=== PATIENT | female | born 1985 | race Caucasian/White ===

== ENCOUNTER 2021-04-15 20:36 | Emergency (ER) | payer MEDICARE, MEDICAID, SELFPAY ==
[2021-04-15 21:30] VITALS: BP 139/103; PULSE 118; RESP 18; TEMP 36.8; O2SAT 99; BMI 35.3
[2021-04-15 23:17] VITALS: BP 140/92; PULSE 116; RESP 16; TEMP 36.8; O2SAT 99
[2021-04-15] MEDS: LORazepam 1 MG TABLET PO (23:31)
--- NOTE | 2021-04-15 23:34 | PC.NURSE ---
medicated per Mar.
--- NOTE | 2021-04-16 00:23 | ED_ITS ---
HPI - Skin/Abscess/Foreign Bdy General Chief complaint: Skin/Abscess/Foreign Body Stated complaint: Rash Time Seen by Provider: 04/15/21 23:25 Source: other (retirement staff member) Mode of arrival: ambulatory Limitations: no limitations History of Present Illness HPI narrative: 36-year-old female with developmental delay who was brought to the emergency department by halfway staff member for evaluation of a rash. The rash came on after dinner at around 7:20 p.m.. At the time my evaluation the rash is almost completely resolved however the halfway staff member did take photos of the rash. The patient has urticarial lesions on her face, neck and arms. The patient is nonverbal and is unreliable however the patient did not appear to have any significant distress with the rash. She had no difficult y swallowing. She did not appear to be short of breath. At the time my evaluation she is in no distress. Related Data Previous Rx's Medication Instructions Recorded diphenhydramine HCl 25 mg capsule 25 mg PO Q6H PRN #20 cap 04/16/21 (Benadryl) prednisone 20 mg tablet 60 mg PO DAILY 5 Days #15 tab 04/16/21 Allergies Allergy/AdvReac Type Severity Reaction Status Date / Time No Known Allergies Allergy Verified 04/15/21 21:29 [No Known Allergies*] Review of Systems Review of Systems: Yes all other systems are reviewed and are negative [facility] Past Medical History [facility] Narrative: Social history: The patient lives in a halfway. She does not smoke cigarettes, drink alcohol or use drugs. Medical History Angioma Anxiety Autism Cerebral palsy Intellectual disability Migraine Social History Social History Advance Directives: No Advance Directives Information Provided: No Physical Exam Vital Signs: Vital Signs: Last Vital Signs Temp 98.2 F 04/15/21 23:17 Pulse 116 H 04/15/21 23:17 Resp 16 04/15/21 23:17 BP 140/92 H 04/15/21 23:17 Pulse Ox 99 04/15/21 23:17 Body Mass Index 35.3 Const: Other: Nonverbal female, pleasant and cooperative, she does not appear to be in distress HENMT: Head: Yes normal to inspection, Yes normocephalic and Yes atraumatic Ears: external ears normal General nose exam: Normal external nose present Face and sinus: Yes normal facial exam Mouth: Normal oral and palatal mucosa present Throat: Yes posterior oropharynx normal Eyes: General: appearance normal, both eyes and all related structures Pupils: Equal, round and reactive pupils present Neck: Neck: Yes normal visual inspection, Yes no lymphadenopathy, Yes trachea midline and Yes supple Chest: Chest palpation & inspection: normal inspection of the chest and normal palpation of entire chest wall Resp: Effort & Inspection: normal respiratory effort and able to speak in complete sentences Auscultation: clear to auscultation bilaterally Cardio: Rate: regular rate Rhythm: regular rhythm Heart sounds: S1 normal heart sound present, S2 normal heart sound present and no murmurs GI: Inspection: Yes normal to inspection Palpation (GI): Soft to palpation, nontender and no guarding Auscultation: normal bowel sounds : General: Yes no CVA tenderness Back/Spine/Pelvis: Back: no CVA tenderness Skin: Other: The patient has faint urticarial appearing rash on her face and neck which blanches with pressure, there is no rash that I can see on her hands or arms. Neuro: Cranial nerves: Yes CN's II-XII intact bilaterally and Yes Equal, round and reactive pupils present Cognition (Neuro): normal cognition Motor exam (neuro): 5/5 motor strength present throughout Extrem: General: Yes normal to inspection Psych: Appearance: grossly normal Speech and movement: Normal speech and movement present Affect: normal affect Attitude: cooperative Thought process: Normal thought process present Thought content: Normal thought content present Course Course Course Narrative: 36-year-old female with developmental delay, nonverbal who was brought to the emergency department by her halfway for evaluation of an urticarial rash on her face and arms. The patient had no other significant symptoms. The patient's rash is consistent with an allergic reaction to an unknown allergen. The patient was given Benadryl 25 mg orally. She was also given prednisone 60 mg orally. She was prescribed Benadryl 25 mg every 6 hours as needed for allergic reaction/rash/itchiness. She was also prescribed prednisone 60 mg once a day for 5 days. Patient was discharged home in the care of her honey blender member. Discharge Plan Discharge Clinical Impression: Urticaria Allergic reaction Qualifiers: Encounter type: initial encounter Qualified Code(s): T78.40XA - Allergy, unspecified, initial encounter Patient Disposition: Home, Self-Care Instructions: Urticaria (ED), Allergies (ED) Additional Instructions: Your rash is consistent with an allergic reaction type rash (urticaria). It is symptoms very difficult to find the cause of an allergic reaction however if she develops a rash again, it is helpful to pay attention to what she ate, drank or was exposed to just prior to developing the rash. I am prescribing to medications for the allergic reaction rash. Give Benadryl 25 mg every 6 hours as needed for itchiness or rash. Give prednisone 20 mg pills, 3 pills once a day for 5 days. She should get her next dose on Monday morning, 04/17/2021. Follow-up with your doctor in 2 days. Please return to the emergency department if your symptoms get worse, develops difficulty swallowing, shortness of breath, lightheaded or dizziness or if you develop any symptoms that are concerning to you. Prescriptions: New prednisone 20 mg tablet 60 mg PO DAILY 5 Days Qty: 15 RF: 0 diphenhydramine HCl [Benadryl] 25 mg capsule 25 mg PO Q6H PRN (Reason: allergic reaction) Qty: 20 RF: 0
[2021-04-16] MEDS: predniSONE 20 MG TABLET 60 MG PO (00:45)
[2021-04-16] MEDS: diphenhydrAMINE HCL 25 MG TABLET PO (00:45)
[2021-04-16 00:48] VITALS: RESP 16
== END 2021-04-16 00:54 | disposition home or self-care (01) ==
PROVIDERS: Emergency Provider Emergency Medicine Emergency Medical Services
DX: L50.0 Allergic urticaria (principal); R62.50 Unspecified lack of expected normal physiological development in childhood
CPT/HCPCS: 96374; 99284; Q0163

== ENCOUNTER 2021-05-30 08:16 | Emergency (ER) | payer MEDICARE, MEDICAID, SELFPAY ==
[2021-05-30] VITALS (8 sets, daily range): BP systolic 93–140; BP diastolic 56–77; PULSE 87–125; RESP 12–20; TEMP 37.1–37.3; O2SAT 90–99; BMI 35.3
--- NOTE | 2021-05-30 08:44 | ECG_ITS ---
Test Reason : WRONG MED GIVEN Blood Pressure : / mmHG Vent. Rate : 120 BPM Atrial Rate : 120 BPM P-R Int : 132 ms QRS Dur : 074 ms QT Int : 322 ms P-R-T Axes : 026 027 002 degrees QTc Int : 455 ms Sinus tachycardia T wave abnormality, consider anterior ischemia Abnormal ECG When compared with ECG of 18-JUN-2014 10:11, Nonspecific T wave abnormality now evident in Lateral leads Referred By: Star Khan Electronically Signed By:ANDRES PARRA MD
[2021-05-30] MEDS: Haloperidol Lactate 5 MG/ML VIAL IM (09:35)
[2021-05-30] MEDS: diphenhydrAMINE HCL 50 MG/ML VIAL IM (09:35)
--- NOTE | 2021-05-30 09:40 | PC.NURSE ---
this scientific technical writer attempted to insert iv, pt became aggressive and started kicking and scratching ed staff and ripped monitor leads from her chest. DERICK Graves made aware by this scientific technical writer. IM meds ordered and given as documented. pt tolerated well. pt responds no to pain. vss documented. HR 106 - 114. waste water worker remains with pt will continue to monitor..
--- NOTE | 2021-05-30 09:51 | ED_ITS ---
HPI - General Adult General Chief complaint: General Medical Stated complaint: GIVEN WRONG MEDS FROM GROUP MEDS PER EMS Time Seen by Provider: 05/30/21 08:30 Source: patient Mode of arrival: ambulatory Limitations: no limitations History of Present Illness HPI narrative: 36-year-old female with past medical history of conference in skin, GERD, migraines, cerebral palsy, severe autistic disorder, intellectual disability, and anxiety brought to the ED for evaluation due to being given wrong meds. As per facility patient was given another pateint's medication by accident by shelter employee. Patient was given 1 pill of benzotine 1 mg, 1 pill of clonidine 0.1 mg, 1 pill of Depakote 50omg, 1 pill of fluxoteine 20 mg, 1 pill of Motrin 600 mg, 1 pill of pantoprazole 40 mg, 1 pill of Zyprexa 15 mg, 1 pill of Seroquel 50 mg. per shelter staff patient is at her baseline mentally. Patient was given the wrong meds of another patient at 08:00. Patient was not given her usual meds. Related Data Previous Rx's Medication Instructions Recorded diphenhydramine HCl 25 mg capsule 25 mg PO Q6H PRN #20 cap 04/16/21 (Benadryl) prednisone 20 mg tablet 60 mg PO DAILY 5 Days #15 tab 04/16/21 Allergies Allergy/AdvReac Type Severity Reaction Status Date / Time No Known Allergies Allergy Verified 05/30/21 08:22 [No Known Allergies*] Review of Systems 2 Review of Systems: Patient appears well appearing not in any distress. Yes Unobtainable due to mental status (autistic and severe intellect disability.) [facility] Past Medical History Medical History Angioma Anxiety Autism Cerebral palsy Intellectual disability Migraine Social History Social History Alcohol intake: never Patient Tobacco Use Status: Never used Tobacco Advance Directives: No Patient : No Physical Exam Vital Signs: Vital Signs: Last Vital Signs Temp 98.7 F 05/30/21 16:23 Pulse 87 05/30/21 16:23 Resp 18 05/30/21 16:23 BP 108/56 L 05/30/21 16:23 Pulse Ox 97 05/30/21 16:23 Body Mass Index 35.3 Const: General: cooperative, healthy appearing, comfortable, no acute distress, well developed, alert, awake and Physically active HENMT: Head: Yes normal to inspection, Yes No palpable skull fracture present, Yes normocephalic, Yes atraumatic and No abrasion Eyes: General: appearance normal, both eyes and all related structures Neck: Neck: Yes normal visual inspection, Yes full ROM, Yes no lymphadenopathy, Yes no meningeal signs, Yes trachea midline, Yes supple, No anterior neck swelling and No tender Chest: Chest palpation & inspection: normal inspection of the chest and normal palpation of entire chest wall Resp: Effort & Inspection: normal respiratory effort and able to speak in complete sentences Auscultation: clear to auscultation bilaterally Cardio: Jugular venous distension: no JVD Heart sounds: S1 normal heart sound present and S2 normal heart sound present GI: Inspection: Yes normal to inspection and No abdominal wall ecchymosis Palpation (GI): Soft to palpation, not firm, nontender, no guarding and not rigid : General: No CVA tenderness and Yes no CVA tenderness Back/Spine/Pelvis: Back: no CVA tenderness, No CVA tenderness and No back tenderness Skin: General skin exam: no rashes or lesions noted and elasticity normal Neuro: Other: Patient is at baseline mentally General: gait normal, no meningeal signs and CN's II-XI intact bilaterally Extrem: General: Yes normal to inspection and Yes full ROM Psych: Appearance: grossly normal and well kempt Course Course Course Narrative: Patient is at baseline will do EKG and labs and call poison Control. Patient did not want us to poor IV or draw lab patient became aggressive due to severe autism and intellectual disability so Benadryl and Haldol was given to patient for labs to be drawn. Reevaluation(s) Reevaluation #1: EKG shows sinus tach. Patient given Haldol and Ativan due to patient not allowing staff to draw blood and placed IV. Patient started findings staff. After given medication labs and EKG were able to be drawn. Also. U tox was ordered. Time: 10:30 Reevaluation #2: As per staff with patient patient is at her baseline which is usually 1 word sentences with aggressiveness when approached. He states patient has severe autism and intellectual disability and at baseline is aggressive. Liver enzymes slightly elevated but rest of labs normal. Vital signs are stable. Spoke with poison Control and informed of patient's history, physical exam, labs, EKG, and medications that was given. And poison Control cassandra consultant states patient could be discharged. Time: 16:08 Reevaluation #3: patient discharged back to group with normal gait and baseline mental status. Medical Decision Making MDM Narrative Medical decision making narrative: 1 medication given. Lab Data Result diagrams: 05/30/21 10:57 05/30/21 10:57 Labs: Lab Results 05/30/21 05/30/21 05/30/21 Range/Units 10:57 10:57 10:57 WBC 3.4 L (4.8-10.8) X10*3/uL RBC 4.20 (4.20-5.50) X10*6/uL Hgb 13.2 (12.0-16.0) g/dl Hct 39.9 (37.0-47.0) % MCV 95.0 (80.0-98.0) fL MCH 31.4 (27.0-33.0) pg MCHC 33.1 (31.0-35.0) g/dl RDW 13.1 (11.0-16.0) % Plt Count 118 L (160-400) X10*3/uL MPV 11.1 (9.4-12.3) fL Immature Gran % (Auto) 0.9 H (0.0-0.4) % Neut % (Auto) 51.3 (45-73) % Lymph % (Auto) 26.4 (20-40) % [place] % (Auto) 20.8 H (2-11) % Eos % (Auto) 0.3 (0-4) % Baso % (Auto) 0.3 (0-2) % Lymph # (Auto) 0.9 L (1.2-4.9) X10*3/uL [place] # (Auto) 0.7 (0.1-1.2) X10*3/uL Eos # (Auto) 0.0 (0.0-0.4) X10*3/uL Baso # (Auto) 0.0 (0.0-0.2) X10*3/uL Abs Immat Gran (auto) 0.03 (0.00-0.03) X10*3/uL Absolute Neuts (auto) 1.8 L (2.0-8.3) x10*3/uL Absolute Nucleated RBC 0.000 (0.0-0.012) X10*3/uL Nucleated RBC % (auto) 0.0 (0.0-0.2) /100WBC Smear Tech's Comments VERIFIED PT 11.5 (9.9-13.0) SEC INR 1.0 (0.9-1.1) APTT 31.6 (24.1-38.0) SEC Sodium 142 (135-145) mmol/L Potassium 4.4 (3.3-5.1) mmol/L Chloride 108 (96-108) mmol/L Carbon Dioxide 26 (22-29) mmol/L Anion Gap 12 (12-20) BUN 13 (9-16) mg/dL Creatinine 0.75 (0.5-1.4) mg/dL Estim Creat Clear Calc 115.9 Estimated GFR > 60 Random Glucose 112 (60-115) mg/dL Calcium 8.7 (8.4-10.2) mg/dL Total Bilirubin 0.2 (0.0-1.0) mg/dL Direct Bilirubin < 0.2 (0.0-0.5) mg/dL AST 44 H (5-31) U/L ALT 60 H (0-31) U/L Alkaline Phosphatase 50 (39-117) U/L Total Protein 6.4 L (6.5-8.0) g/dL Albumin 3.6 (3.5-5.0) g/dL Urine Color Urine Appearance Urine pH (5.0-8.0) Ur Specific [place] (1.005-1.025) Urine Protein (NEG-TRACE) MG/DL Urine Glucose (UA) (NEG) MG/DL Urine Ketones (NEG) MG/DL Urine Blood (NEG) Urine Nitrite (NEG) Ur Leukocyte Esterase (NEG) Salicylates < 5.0 L (15-30) mg/dL Urine Opiates Screen (Not Detect) Urine Fentanyl Screen (Not Detect) Acetaminophen < 1 (<30) mcg/mL Ur Barbiturates Screen (Not Detect) Ur Phencyclidine Scrn (Not Detect) Ur Amphetamines Screen (Not Detect) U Benzodiazepines Scrn (Not Detect) Urine Cocaine Screen (Not Detect) U Marijuana (THC) Screen (Not Detect) Ethyl Alcohol mg/dL 05/30/21 05/30/21 05/30/21 Range/Units 10:57 13:00 13:00 WBC (4.8-10.8) X10*3/uL RBC (4.20-5.50) X10*6/uL Hgb (12.0-16.0) g/dl Hct (37.0-47.0) % MCV (80.0-98.0) fL MCH (27.0-33.0) pg MCHC (31.0-35.0) g/dl RDW (11.0-16.0) % Plt Count (160-400) X10*3/uL MPV (9.4-12.3) fL Immature Gran % (Auto) (0.0-0.4) % Neut % (Auto) (45-73) % Lymph % (Auto) (20-40) % [place] % (Auto) (2-11) % Eos % (Auto) (0-4) % Baso % (Auto) (0-2) % Lymph # (Auto) (1.2-4.9) X10*3/uL [place] # (Auto) (0.1-1.2) X10*3/uL Eos # (Auto) (0.0-0.4) X10*3/uL Baso # (Auto) (0.0-0.2) X10*3/uL Abs Immat Gran (auto) (0.00-0.03) X10*3/uL Absolute Neuts (auto) (2.0-8.3) x10*3/uL Absolute Nucleated RBC (0.0-0.012) X10*3/uL Nucleated RBC % (auto) (0.0-0.2) /100WBC Smear Tech's Comments PT (9.9-13.0) SEC INR (0.9-1.1) APTT (24.1-38.0) SEC Sodium (135-145) mmol/L Potassium (3.3-5.1) mmol/L Chloride (96-108) mmol/L Carbon Dioxide (22-29) mmol/L Anion Gap (12-20) BUN (9-16) mg/dL Creatinine (0.5-1.4) mg/dL Estim Creat Clear Calc Estimated GFR Random Glucose (60-115) mg/dL Calcium (8.4-10.2) mg/dL Total Bilirubin (0.0-1.0) mg/dL Direct Bilirubin (0.0-0.5) mg/dL AST (5-31) U/L ALT (0-31) U/L Alkaline Phosphatase (39-117) U/L Total Protein (6.5-8.0) g/dL Albumin (3.5-5.0) g/dL Urine Color YELLOW Urine Appearance CLEAR Urine pH 6.0 (5.0-8.0) Ur Specific [place] >= 1.030 H (1.005-1.025) Urine Protein NEG (NEG-TRACE) MG/DL Urine Glucose (UA) NEG (NEG) MG/DL Urine Ketones 5 (NEG) MG/DL Urine Blood NEG (NEG) Urine Nitrite NEG (NEG) Ur Leukocyte Esterase NEG (NEG) Salicylates (15-30) mg/dL Urine Opiates Screen Not Detected (Not Detect) Urine Fentanyl Screen Not Detected (Not Detect) Acetaminophen (<30) mcg/mL Ur Barbiturates Screen Not Detected (Not Detect) Ur Phencyclidine Scrn Not Detected (Not Detect) Ur Amphetamines Screen Not Detected (Not Detect) U Benzodiazepines Scrn Not Detected (Not Detect) Urine Cocaine Screen Not Detected (Not Detect) U Marijuana (THC) Screen Not Detected (Not Detect) Ethyl Alcohol < 10 mg/dL ECG Data Interpretation: Sinus tachycardia. Ventricular rate 120. Parent of 132. QRS 74 pr QTC 455. Negative STEMI. Discharge Plan Discharge Clinical Impression: Accidental drug ingestion Patient Disposition: Home, Self-Care Instructions: Medication Safety for Older Adults (ED) Additional Instructions: Return to the ED immediately for any altered mental status, vomiting, dizziness, chest pain, shortness of breath, diarrhea, flank pain, fever, chills, rash, abnormal vital signs, or any other concerning symptoms. Please follow-up with primary care provider Prescriptions: No Action prednisone 20 mg tablet 60 mg PO DAILY 5 Days Qty: 15 RF: 0 diphenhydramine HCl [Benadryl] 25 mg capsule 25 mg PO Q6H PRN (Reason: allergic reaction) Qty: 20 RF: 0 Interventions: ED Discharge Assessment Last Done: 05/30/21 16:38 Discharge Date/Time: 05/30/21 16:39 Print Language: [place]
[2021-05-30] MEDS: 0.9 % Sodium Chloride 1,000 ML 999 ML IV (10:58)
[2021-05-30 11:12] LABS: Eosinophils Percent Auto 0.3 % (0-4); Hemoglobin 13.2 g/dl (12.0-16.0); MANUAL DIFF FLAG SCAN; PLT CLUMP 1
[2021-05-30 11:14] LABS: Basophils Percent Auto 0.3 % (0-2); Hematocrit 39.9 % (37.0-47.0); Imm Gran Abs Auto 0.03 X10*3/uL (0.00-0.03); Imm Gran Pct Auto 0.9 % (0.0-0.4); Lymphocytes Absolute Auto 0.9 X10*3/uL (1.2-4.9); Lymphocytes Percent Auto 26.4 % (20-40); Mean Corpuscular HGB Conc 33.1 g/dl (31.0-35.0); Mean Corpuscular Hemoglobin 31.4 pg (27.0-33.0); Mean Platelet Volume 11.1 fL (9.4-12.3); Monocytes Absolute Auto 0.7 X10*3/uL (0.1-1.2); Monocytes Percent Auto 20.8 % (2-11); Neutrophils Absolute Auto 1.8 x10*3/uL (2.0-8.3); Neutrophils Percent Auto 51.3 % (45-73); Platelet Count 118 X10*3/uL (160-400); Red Cell Distribution Width 13.1 % (11.0-16.0); SCAN SMEAR FLAG 1; White Blood Count 3.4 X10*3/uL (4.8-10.8)
[2021-05-30 11:18] LABS: Ethanol < 10 mg/dL
[2021-05-30 11:19] LABS: Prothrombin Time 11.5 SEC (9.9-13.0)
[2021-05-30 11:21] LABS: Alanine Aminotransferase 60 U/L (0-31); Albumin Level 3.6 g/dL (3.5-5.0); Alkaline Phosphatase 50 U/L (39-117); Anion Gap 12 (12-20); Aspartate Amino Transferase 44 U/L (5-31); Bilirubin Direct < 0.2 mg/dL (0.0-0.5); Bilirubin Total 0.2 mg/dL (0.0-1.0); Blood Urea Nitrogen 13 mg/dL (9-16); Calcium 8.7 mg/dL (8.4-10.2); Carbon Dioxide 26 mmol/L (22-29); Chloride 108 mmol/L (96-108); Creatinine Clr Calc Pharmacy 115.9; Estimated Glomerular Filt Rate > 60; Glucose Random 112 mg/dL (60-115); Partial Thromboplastin Time 31.6 SEC (24.1-38.0); Potassium 4.4 mmol/L (3.3-5.1); Salicylate < 5.0 mg/dL (15-30); Sodium 142 mmol/L (135-145); Total Protein 6.4 g/dL (6.5-8.0)
[2021-05-30 11:35] LABS: SLIDE REVIEW VERIFIED
[2021-05-30 11:47] LABS: Acetaminophen LAB < 1 mcg/mL (<30)
[2021-05-30 13:24] LABS: Amphetamine Screen Urine Not Detected (Not Detect); Barbiturates, Urine Not Detected (Not Detect); Benzodiazepines Screen Urine Not Detected (Not Detect); Cannabinoid Screen Urine Not Detected (Not Detect); Cocaine Screen Urine Not Detected (Not Detect); Fentanyl, urine Not Detected (Not Detect); Opiate Screen Urine Not Detected (Not Detect); Phencyclidine Screen Urine Not Detected (Not Detect)
[2021-05-30 13:27] LABS: Appearance Urine CLEAR; Color Urine YELLOW; Glucose Urine UA NEG (NEG); Leukocyte Esterase Urine NEG (NEG); Nitrite Urine NEG (NEG); Specific Gravity - Urine >= 1.030 (1.005-1.025); Urine Blood NEG (NEG); Urine Ketones 5 MG/DL (NEG); Urine Protein NEG (NEG-TRACE)
== END 2021-05-30 16:39 | disposition home or self-care (01) ==
PROVIDERS: Physician Assistant; Emergency Provider Emergency Medicine Emergency Medical Services
DX: T50.2X1A Poisoning by carbonic-anhydrase inhibitors, benzothiadiazides and other diuretics, accidental (unintentional), initial encounter (principal); T46.5X1A Poisoning by other antihypertensive drugs, accidental (unintentional), initial encounter; T42.6X1A Poisoning by other antiepileptic and sedative-hypnotic drugs, accidental (unintentional), initial encounter; R89.2 Abnormal level of other drugs, medicaments and biological substances in specimens from other organs, systems and tissues; Y92.9 Unspecified place or not applicable; Z79.899 Other long term (current) drug therapy
CPT/HCPCS: 36415; 80053; 80143; 80179; 80307; 81003; 82077; 82248; 85025; 85610; 85730; 93005; 96360; 96372; 99284; J1200

== ENCOUNTER 2021-09-17 00:32 | Emergency (ER) | payer MEDICARE, MEDICAID, SELFPAY ==
--- NOTE | ~2021-09-17 | CT_ITS ---
EXAMINATION: CT ABDOMEN AND PELVIS WITH CONTRAST CLINICAL INFORMATION: Diffuse abdominal pain COMPARISON: None TECHNIQUE: Multidetector volumetric images were obtained from the superior aspect of the liver through the pubic symphysis following administration 85 mL of Omnipaque 350 intravenous contrast. Sagittal and coronal reformatted images were obtained on the technologist's workstation. Oral contrast: No This CT examination was performed using dose optimization techniques as appropriate, variously including the following: *Automated exposure control *Adjustment of mA and/or kV according to patient size (this includes techniques or standardized protocols for targeted exams where dose is matched to indication/reason for exam; i.e. extremities or head) *Use of iterative reconstruction technique DLP: 1382 mGy-cm FINDINGS: LUNG BASES: The visualized lung bases are unremarkable. LIVER, GALLBLADDER, AND BILIARY TREE: The liver is normal in size, shape, and attenuation. No focal hepatic lesion or biliary ductal dilatation is present. Multiple gallstones are present. No appreciable pericholecystic inflammatory change. PANCREAS: Unremarkable. SPLEEN: Unremarkable. ADRENAL GLANDS: Unremarkable. KIDNEYS AND URETERS: Bilateral nephrograms are symmetric. No hydronephrosis or obstructing calculus identified. BLADDER: Unremarkable. GASTROINTESTINAL TRACT: Colonic diverticulosis is noted. Fluid is present within some loops of small and large bowel, without significant dilation to suggest bowel obstruction. No significant bowel wall thickening or pericolonic inflammation. The appendix is unremarkable. No free fluid or free air is seen. ABDOMINAL WALL: No significant hernia is appreciated. LYMPH NODES: Normal. VASCULAR: Unremarkable. PELVIC VISCERA: Unremarkable. OSSEOUS STRUCTURES: Unremarkable. CT/CT abdomen pelvis w con IMPRESSION: Cholelithiasis without additional CT findings of cholecystitis. Otherwise, no acute findings identified in the abdomen/pelvis. Fleischner guidelines were followed.
[2021-09-17 00:40] VITALS: BP 138/77; PULSE 112; RESP 16; TEMP 36.9; O2SAT 90; O2SAT 98; BMI 35.3
--- NOTE | 2021-09-17 00:55 | ED.GENADULT ---
HPI - General Adult General Chief complaint: General Medical <DERICK Glez - Last Filed: 09/17/21 02:10> Stated complaint: Vomiting <DERICK Glez Last Filed: 09/17/21 02:10> Time Seen by Provider: 09/17/21 00:49 <DERICK Glez Last Filed: 09/17/21 02:10> Source: EMS <DERICK Glez Last Filed: 09/17/21 02:10> Mode of arrival: EMS <DERICK Glez Last Filed: 09/17/21 02:10> Limitations: other (Patient is nonverbal at baseline.) <DERICK Glez Last Filed: 09/17/21 02:10> History of Present Illness HPI narrative: This is a 36-year-old female past medical history significant for cerebral palsy, intellectual disability, anxiety presenting to the emergency department via ambulance with concerns from intermediate staff that patient has had 4 episodes of vomiting. According to EMS they reported that she has been vomiting small amounts of bile since 23:00 she has had 4 episodes. It is unclear whether not patient had other episodes earlier this morning. According to intermediate staff was here the bedside they report the patient vomited which she had for dinner however they are unable to tell me what she had for dinner. According to intermediate staff patient has only had vomiting and nausea. No diarrhea. She has been eating and drinking. In good spirits. <DERICK Glez Last Filed: 09/17/21 02:10> Onset (ago): day(s) (1) <DERICK Glez Last Filed: 09/17/21 02:10> Severity: mild <DERICK Glez Last Filed: 09/17/21 02:10> Relieving factors: none <DERICK Glez Last Filed: 09/17/21 02:10> Exacerbating factors: none <DERICK Glez Last Filed: 09/17/21 02:10> Treatments prior to arrival: none <DERICK Glez Last Filed: 09/17/21 02:10> Related Data Home medications: Previous Rx's Medication Instructions Recorded diphenhydramine HCl 25 mg capsule 25 mg PO Q6H PRN #20 cap 04/16/21 (Benadryl) prednisone 20 mg tablet 60 mg PO DAILY 5 Days #15 tab 04/16/21 <DERICK Glez - Last Filed: 09/17/21 02:10> Allergies/adverse reactions: Allergies Allergy/AdvReac Type Severity Reaction Status Date / Time No Known Allergies Allergy Verified 05/30/21 08:22 [No Known Allergies*] <DERICK Glez - Last Filed: 09/17/21 02:10> Review of Systems Review of Systems: Yes Unobtainable due to mental status <DERICK Glez - Last Filed: 09/17/21 02:10> PMFSH Past Medical History Attestation statement: The following information was validated with the patient. <DERICK Glez - Last Filed: 09/17/21 02:10> Source: old records reviewed and nursing notes reviewed <DERICK Glez - Last Filed: 09/17/21 02:10> Medical History: Medical History Angioma Anxiety Autism Cerebral palsy Intellectual disability Migraine <DERICK Glez - Last Filed: 09/17/21 02:10> Social History Social History: Social History Alcohol intake: never Patient Tobacco Use Status: Never used Tobacco Advance Directives: No <DERICK Glez - Last Filed: 09/17/21 02:10> Physical Exam ED Vital Signs: Vital Signs - 24 hr 09/17/21 00:40 Temperature 98.4 F Pulse Rate 112 H Respiratory Rate 16 Blood Pressure 138/77 Pulse Oximetry 98 BMI result Body Mass Index 35.3 VSS <DERICK Glez - Last Filed: 09/17/21 02:10> Appearance: Awake, alert moving all extremities appropriate for baseline. No acute distress.? Head: Normocephalic, atraumatic, no step-offs or deformities Eyes: Pupils equal, round and reactive to light.? ENT: Pharynx normal.? Neck: Normal inspection.? Neck supple.? CVS: Normal heart rate and rhythm.? Pulses normal.? Respiratory: No respiratory distress.? Breath sounds normal.? Abdomen: Soft and nontender.? Negative McBurney's, [place]'s, Rovsing, obturator, psoas. Skin: Skin warm and dry.? Normal skin color.? Normal skin turgor.? Extremities: No lower extremity edema.? No calf ttp. 5/5 strength to bilateral upper and lower extremities Back: No midline tenderness, no C-spine tenderness, full range of motion, no CVA tenderness bilaterally Neuro: Awake, alert moving all extremities appropriate for baseline. No motor deficit.? No sensory deficit. CN 2-12 intact <DERICK Glez - Last Filed: 09/17/21 02:10> Course Reevaluation(s) Reevaluation #1: CBC within normal limits. Chemistry with no acute electrolyte abnormalities. BUN slightly elevated will hydrate. UA pending. CT of the abdomen and pelvis pending. Patient had 2 episodes of green emesis while here. After getting medicated she has not had any other episodes. Sing out given to Dr. Blanco <DERICK Glez - Last Filed: 09/17/21 02:10> Time: 02:10 <DERICK Glez - Last Filed: 09/17/21 02:10> Medical Decision Making [facility] Narrative Medical decision making narrative: 0040 36 yo nonverbal female presents from intermediate with 4 episodes of nausea. Physical examination benign. No tenderness to palpation of abdomen. Plan labs. In give patient's sublingual Zofran. <DERICK Glez Last Filed: 09/17/21 02:10> Medical Records Medical records reviewed: Yes I reviewed the patient's medical records. <DERICK Glez Last Filed: 09/17/21 02:10> Lab Data Lab results reviewed: Yes I reviewed the patient's lab results. <DERICK Glez Last Filed: 09/17/21 02:10> Result diagrams: : 09/17/21 01:33 09/17/21 01:33 <DERICK Glez - Last Filed: 09/17/21 02:10> Labs: Lab Results 09/17/21 09/17/21 09/17/21 Range/Units 01:33 01:33 01:33 WBC 7.3 (4.8-10.8) X10*3/uL RBC 4.76 (4.20-5.50) X10*6/uL Hgb 14.7 (12.0-16.0) g/dl Hct 44.9 (37.0-47.0) % MCV 94.3 (80.0-98.0) fL MCH 30.9 (27.0-33.0) pg MCHC 32.7 (31.0-35.0) g/dl RDW 12.5 (11.0-16.0) % Plt Count 133 L (160-400) X10*3/uL MPV 10.1 (9.4-12.3) fL Immature Gran % (Auto) 0.4 (0.0-0.4) % Neut % (Auto) 91.9 H (45-73) % Lymph % (Auto) 2.7 L (20-40) % [place] % (Auto) 4.8 (2-11) % Eos % (Auto) 0.1 (0-4) % Baso % (Auto) 0.1 (0-2) % Lymph # (Auto) 0.2 L (1.2-4.9) X10*3/uL [place] # (Auto) 0.4 (0.1-1.2) X10*3/uL Eos # (Auto) 0.0 (0.0-0.4) X10*3/uL Baso # (Auto) 0.0 (0.0-0.2) X10*3/uL Abs Immat Gran (auto) 0.03 (0.00-0.03) X10*3/uL Absolute Neuts (auto) 6.7 (2.0-8.3) x10*3/uL Absolute Nucleated RBC 0.000 (0.0-0.012) X10*3/uL Nucleated RBC % (auto) 0.0 (0.0-0.2) /100WBC Smear Tech's Comments VERIFIED Sodium 140 (135-145) mmol/L Potassium 4.0 (3.3-5.1) mmol/L Chloride 105 (96-108) mmol/L Carbon Dioxide 25 (22-29) mmol/L Anion Gap 14 (12-20) BUN 20 H (9-16) mg/dL Creatinine 0.71 (0.5-1.4) mg/dL Estim Creat Clear Calc 122.5 Estimated GFR > 60 Random Glucose 114 (60-115) mg/dL Calcium 8.9 (8.4-10.2) mg/dL Magnesium 1.9 (1.6-2.6) mg/dL Total Bilirubin 0.6 (0.0-1.0) mg/dL AST 22 D (5-31) U/L ALT 23 (0-31) U/L Alkaline Phosphatase 57 (39-117) U/L Total Protein 7.2 (6.5-8.0) g/dL Albumin 4.0 (3.5-5.0) g/dL Lipase 20 (8-78) U/L COVID-19 (ARCENIO) Negative (Negative) COVID-19 Clin Com See Note <DERICK Glez - Last Filed: 09/17/21 02:10> Critical Care Time Critical Care Time Critical Care Time: No <DERICK Glez Last Filed: 09/17/21 02:10> Discharge Plan Discharge Clinical Impression: Vomiting Qualifiers: Vomiting type: unspecified Nausea presence: with nausea Qualified Code(s): R11.2 - Nausea with vomiting, unspecified <DERICK Glez Last Filed: 09/17/21 02:10> Patient Disposition: Still a Patient <DERICK Glez Last Filed: 09/17/21 02:10> Instructions: Acute Nausea and Vomiting (ED) <DERICK Glez Last Filed: 09/17/21 02:10> Additional Instructions: Take your medications as prescribed. If you were prescribed antibiotics today, it is important that you take your medication to their entirety, do not skip any doses, do not finish them early. Follow-up with your primary care provider this week. Return to the emergency department with new or worsening symptoms. Such as fevers, chills, chest pain, shortness of breath, nausea, vomiting, dizziness, headache, vision changes, lethargy In case of emergency call 911 <DERICK Glez - Last Filed: 09/17/21 02:10> Prescriptions: No Action prednisone 20 mg tablet 60 mg PO DAILY 5 Days Qty: 15 0RF diphenhydramine HCl [Benadryl] 25 mg capsule 25 mg PO Q6H PRN (Reason: allergic reaction) Qty: 20 0RF <DERICK Glez - Last Filed: 09/17/21 02:10>
[2021-09-17 01:39] LABS: Basophils Percent Auto 0.1 % (0-2); Eosinophils Percent Auto 0.1 % (0-4); Imm Gran Abs Auto 0.03 X10*3/uL (0.00-0.03); Imm Gran Pct Auto 0.4 % (0.0-0.4); MANUAL DIFF FLAG SCAN; Mean Platelet Volume 10.1 fL (9.4-12.3); PLT CLUMP 1; SCAN SMEAR FLAG 1
[2021-09-17 01:41] LABS: Hematocrit 44.9 % (37.0-47.0); Hemoglobin 14.7 g/dl (12.0-16.0); Lymphocytes Absolute Auto 0.2 X10*3/uL (1.2-4.9); Lymphocytes Percent Auto 2.7 % (20-40); Mean Corpuscular HGB Conc 32.7 g/dl (31.0-35.0); Mean Corpuscular Hemoglobin 30.9 pg (27.0-33.0); Mean Corpuscular Volume 94.3 fL (80.0-98.0); Monocytes Absolute Auto 0.4 X10*3/uL (0.1-1.2); Monocytes Percent Auto 4.8 % (2-11); Neutrophils Absolute Auto 6.7 x10*3/uL (2.0-8.3); Neutrophils Percent Auto 91.9 % (45-73); Platelet Count 133 X10*3/uL (160-400); Red Blood Count 4.76 X10*6/uL (4.20-5.50); Red Cell Distribution Width 12.5 % (11.0-16.0); White Blood Count 7.3 X10*3/uL (4.8-10.8)
[2021-09-17 01:55] LABS: Alanine Aminotransferase 23 U/L (0-31); Alkaline Phosphatase 57 U/L (39-117); Anion Gap 14 (12-20); Aspartate Amino Transferase 22 U/L (5-31); Bilirubin Total 0.6 mg/dL (0.0-1.0); Blood Urea Nitrogen 20 mg/dL (9-16); Calcium 8.9 mg/dL (8.4-10.2); Carbon Dioxide 25 mmol/L (22-29); Chloride 105 mmol/L (96-108); Creatinine Clr Calc Pharmacy 122.5; Estimated Glomerular Filt Rate > 60; Glucose Random 114 mg/dL (60-115); Lipase 20 U/L (8-78); Magnesium 1.9 mg/dL (1.6-2.6); Sodium 140 mmol/L (135-145); Total Protein 7.2 g/dL (6.5-8.0)
[2021-09-17 01:56] LABS: COVID-19 Test Negative (Negative)
[2021-09-17 02:00] VITALS: BP 138/77; PULSE 112; RESP 16; TEMP 36.9; O2SAT 98
[2021-09-17] MEDS: 0.9 % Sodium Chloride 1,000 ML 999 ML IV (02:15)
[2021-09-17] MEDS: iohexoL 350 MG/ML 100 ML INFUS..BTL 85 ML IV (02:21)
[2021-09-17 02:22] LABS: SLIDE REVIEW VERIFIED
== END 2021-09-17 04:59 | disposition home or self-care (01) ==
PROVIDERS: Physician Assistant; Emergency Provider Emergency Medicine
DX: K80.20 Calculus of gallbladder without cholecystitis without obstruction (principal); R11.2 Nausea with vomiting, unspecified; G80.9 Cerebral palsy, unspecified; F84.0 Autistic disorder; F79 Unspecified intellectual disabilities; Z20.822 Contact with and (suspected) exposure to COVID-19
CPT/HCPCS: 74177; 80053; 83690; 83735; 85025; 87635; 96360; 99284; Q9967

== ENCOUNTER → 2021-10-11 13:29 | Outpatient (BNVA) | payer MEDICARE, MEDICAID, SELFPAY | PROVIDERS: Visit Provider Surgery | DX: K80.20 Calculus of gallbladder without cholecystitis without obstruction (principal) | CPT/HCPCS: 99202 ==

== ENCOUNTER 2022-01-14 08:49 | Outpatient (REF) | payer MEDICARE, MEDICAID, SELFPAY ==
[2022-01-14 10:16] LABS: Valproate 51.4 mcg/mL (50.0-100.0)
[2022-01-14 10:19] LABS: Alanine Aminotransferase 19 U/L (0-31); Albumin Level 3.9 g/dL (3.5-5.0); Alkaline Phosphatase 57 U/L (39-117); Aspartate Amino Transferase 14 U/L (5-31); Bilirubin Direct < 0.2 mg/dL (0.0-0.5); Bilirubin Total < 0.2 mg/dL (0.0-1.0); Total Protein 7.1 g/dL (6.5-8.0)
== END 2022-01-14 08:50 | disposition home or self-care (01) ==
LOC: HO.LAB 08:49
PROVIDERS: Visit Provider General Practice
DX: Z79.899 Other long term (current) drug therapy (principal)
CPT/HCPCS: 36415; 80076; 80164

== ENCOUNTER 2022-03-15 15:35 | Emergency (ER) | payer MEDICARE, MEDICAID, SELFPAY ==
--- NOTE | ~2022-03-15 | XR_ITS ---
EXAMINATION: XR RIBS, RIGHT CLINICAL INFORMATION: Fall. Bruising of right lateral chest COMPARISON: None TECHNIQUE: Frontal view of chest 3 views of the right ribs were obtained. FINDINGS: Lungs are clear. No consolidation, pneumothorax, or pleural effusion. The cardiomediastinal silhouette and pulmonary vasculature are normal. Osseous structures are unremarkable. Ribs are intact. No fractures are identified. XR/XR ribs RT min 3V w CXR1V IMPRESSION: Unremarkable examination.
[2022-03-15 15:50] VITALS: BP 139/99; PULSE 88; RESP 18; TEMP 36.7; O2SAT 98; BMI 35.3
--- NOTE | 2022-03-15 17:12 | ED.GENADULT ---
HPI - General Adult General Chief complaint: General Medical Stated complaint: bruise on R side Time Seen by Provider: 03/15/22 16:43 Source: patient and other (Assisted staff member ) Mode of arrival: ambulatory Limitations: other ( cognitive impairment ) History of Present Illness HPI narrative: 36-year-old female with a past medical history of intellectual disability, cognitive impairment, cerebral palsy, autism, anxiety, depression, aggression and constipation who is currently residing in a shelter presenting to the ER with complaints of a bruise to her right lateral chest that they noticed today. Patient reports she fell although is very vague about this. long term staff member reports they are unsure if she fell. Patient was just sent to be evaluated unknown cause they report. Patient denies any other symptoms complaints or concerns at this time. Related Data Home Medications Medication Instructions Recorded Confirmed acetaminophen 650 mg 650 mg PO Q8H 10/11/21 tablet,extended release (Tylenol 8 Hour) aripiprazole 5 mg tablet 5 mg PO DAILY 10/11/21 bacitracin zinc 500 unit/gram 1 appl topical DAILY 10/11/21 topical ointment (Antibiotic (bacitracin zinc)) bisacodyl 5 mg tablet,delayed 10 mg PO BEDTIME 10/11/21 release (Dulcolax (bisacodyl)) cholecalciferol (vitamin D3) 25 800 unit PO DAILY 10/11/21 mcg (1,000 unit) capsule divalproex 500 mg tablet,delayed 500 mg PO BID 10/11/21 release gabapentin 300 mg capsule mg PO 10/11/21 loratadine 10 mg tablet (Claritin) 10 mg PO DAILY 10/11/21 lorazepam 0.5 mg tablet 0.5 mg PO DAILY PRN 10/11/21 lorazepam 1 mg tablet mg PO 10/11/21 lorazepam 2 mg tablet 2 mg PO BEDTIME PRN 10/11/21 norethindrone (contraceptive) 0.35 0.35 mg PO DAILY 10/11/21 mg tablet (Hillary) polyethylene glycol 3350 17 17 g PO DAILY 10/11/21 gram/dose oral powder (Miralax) trazodone 100 mg tablet 100 mg PO BEDTIME 10/11/21 triamcinolone acetonide 0.1 % topical BEDTIME 10/11/21 topical ointment Previous Rx's Medication Instructions Recorded diphenhydramine HCl 25 mg capsule 25 mg PO Q6H PRN allergic reaction 04/16/21 (Benadryl) #20 caps prednisone 20 mg tablet 60 mg PO DAILY 5 days #15 tabs 04/16/21 ondansetron 4 mg disintegrating 4 mg PO Q8H PRN nausea and 09/17/21 tablet vomiting #20 tabs Allergies Allergy/AdvReac Type Severity Reaction Status Date / Time No Known Allergies Allergy Verified 03/15/22 15:49 [No Known Allergies*] Review of Systems Review of Systems: Yes Unobtainable due to mental condition ( Cognitive impairment, cerebral palsy and autism) [facility] Past Medical History Source: old records reviewed, nursing notes reviewed and other ( from shelter staff member) Medical History (Updated 03/15/22 @ 17:31 by DERICK Sheets) Angioma Anxiety Autism Cerebral palsy Gallstones Intellectual disability Migraine Social History Social History Alcohol intake: never Patient Tobacco Use Status: Never used Tobacco Advance Directives: No Advance Directives Information Provided: No Physical Exam ED Vital Signs: Vital Signs - 24 hr 03/15/22 15:50 Temperature 98.1 F Pulse Rate 88 Respiratory Rate 18 Blood Pressure 139/99 H Pulse Oximetry 98 Oxygen Delivery Method Room Air BMI result Body Mass Index 35.3 vital signs have been reviewed as normal and appeared to be correct. Blood pressure 139/99. Heart rate normal. Respiration rate normal. Temperature normal. Oxygen saturation normal. Appearance: Alert. Oriented X3. No acute distress. Head: Normal external exam. Normocephalic. Atraumatic. No [place] signs noted. No raccoon eyes noted Eyes: PERRLA. EOMI. Conjunctiva and sclera normal. Eyelids normal. ENT: EAC normal. TM's Normal. No septal hematoma noted. No hemotympanum noted. Pharynx normal. Uvula midline. Moist mucous membranes. No lesions/ulcerations or masses noted on the tongue. Normal voice. No trismus noted. No drooling noted. No muffled voice noted. Neck: Normal inspection. Neck supple. FROM. No adenopathy. Thyroid Normal. No tracheal deviation noted. No crepitus is noted. No meningeal signs. No neck mass noted. No signs of trauma noted. CVS: Normal heart rate and rhythm. Heart sound normal. Pulses normal throughout. No murmurs/rales/gallops. Respiratory: No respiratory distress. Painless inspiration. Breath sounds normal. No wheezes/rales/rhonchi noted. Chest with mild tenderness palpation to the right lateral ribcage with ecchymosis noted. Not consistent with flail chest. No other signs of trauma noted. No crepitus is noted. No signs of trauma noted. No accessory muscle usage noted or decreased air movement noted. No signs of trauma. Abdomen: Soft and nontender. Bowel sounds normal in all 4 quadrants. No distention noted. No organomegaly noted. No visible injury noted. Back: No CVA tenderness. Full range of motion noted. Nontender. No signs of trauma. Patient neuro intact bilaterally and distally on all 4 extremities. Patient's reflexes intact bilaterally and distally on all 4 extremities. No rashes/lesion/induration/fluctuance or signs of infection noted. Skin: Skin warm and dry. Normal skin color. Normal skin turgor. No rashes/lesions/lacerations noted. Extremities: No lower extremity edema. No calf tenderness is noted. Extremities exhibit normal range of motion and nontender. Neuro: Oriented X 3. No motor deficit. No sensory deficit. Reflexes normal. Normal steady gait. No focal neuro deficits noted. CN's II-XII intact bilaterally? Vascular: + radial pulses/+ 2 distal pedal pulses/+2 dorsalis pedis b/l. Normal cap refill. No cyanosis noted to upper extremity nails and lower extremity toes nails. Course Course Course Narrative: 36-year-old female with a past medical history of intellectual disability, cognitive impairment, cerebral palsy, autism, anxiety, depression, aggression and constipation who is currently residing in a shelter presenting to the ER with complaints of a bruise to her right lateral chest that they noticed today. Patient reports she fell although is very vague about this. long term staff member reports they are unsure if she fell. Patient was just sent to be evaluated unknown cause they report. Patient denies any other symptoms complaints or concerns at this time. Rib x-ray negative. Patient does not have any other signs of trauma. She is moving head/neck/ back in all extremities without any pain. Therefore at this time will DC home with instructions return if any new or worsening symptoms follow up with primary care provider. Patient with group staff member understand agree this plan. Medical Decision Making Medical Records Medical records reviewed: Yes I reviewed the patient's medical records. Imaging Data ribs/pa chest Xray: Attestation: I personally reviewed and interpreted this imaging study as follows: Radiologist's impression: FINDINGS: Lungs are clear. No consolidation, pneumothorax, or pleural effusion. The cardiomediastinal silhouette and pulmonary vasculature are normal. Osseous structures are unremarkable. Ribs are intact. No fractures are identified. XR/XR ribs RT min 3V w CXR1V IMPRESSION: Unremarkable examination. Discharge Plan Discharge Clinical Impression: Superficial bruising of chest wall Patient Disposition: Home, Self-Care Instructions: Contusion in Adults (ED) Prescriptions: No Action prednisone 20 mg tablet 60 mg PO DAILY 5 Days Qty: 15 0RF diphenhydramine HCl [Benadryl] 25 mg capsule 25 mg PO Q6H PRN (Reason: allergic reaction) Qty: 20 0RF ondansetron 4 mg tablet,disintegrating 4 mg PO Q8H PRN (Reason: nausea and vomiting) Qty: 20 0RF norethindrone (contraceptive) [Hillary] 0.35 mg tablet 0.35 mg PO DAILY aripiprazole 5 mg tablet 5 mg PO DAILY gabapentin 300 mg capsule PO lorazepam 0.5 mg tablet 0.5 mg PO DAILY PRN trazodone 100 mg tablet 100 mg PO BEDTIME triamcinolone acetonide 0.1 % ointment topical BEDTIME divalproex 500 mg tablet,delayed release (DR/EC) 500 mg PO BID lorazepam 1 mg tablet PO lorazepam 2 mg tablet 2 mg PO BEDTIME PRN bisacodyl [Dulcolax (bisacodyl)] 5 mg tablet,delayed release (DR/EC) 10 mg PO BEDTIME polyethylene glycol 3350 [Miralax] 17 gram/dose powder 17 g PO DAILY bacitracin zinc [Antibiotic (bacitracin zinc)] 500 unit/gram ointment 1 appl topical DAILY loratadine [Claritin] 10 mg tablet 10 mg PO DAILY acetaminophen [Tylenol 8 Hour] 650 mg tablet extended release 650 mg PO Q8H cholecalciferol (vitamin D3) 25 mcg (1,000 unit) capsule 800 unit PO DAILY Referrals: Physician,Unknown J [Primary Care Provider] - 2 days (your pcp)
== END 2022-03-15 17:36 | disposition home or self-care (01) ==
PROVIDERS: Emergency Provider Emergency Medicine
DX: S20.211A Contusion of right front wall of thorax, initial encounter (principal); R07.81 Pleurodynia; W01.0XXA Fall on same level from slipping, tripping and stumbling without subsequent striking against object, initial encounter; Y93.9 Activity, unspecified; Y92.9 Unspecified place or not applicable; Y99.9 Unspecified external cause status; Z79.899 Other long term (current) drug therapy
CPT/HCPCS: 71101; 99282; 99283

== ENCOUNTER 2022-12-29 15:38 | Emergency (ER) | payer MEDICARE, MEDICAID, SELFPAY ==
--- NOTE | ~2022-12-29 | XR_ITS ---
EXAMINATION: XR CHEST CLINICAL INFORMATION: Bruised on chest wall. COMPARISON: Chest radiograph 03/15/2022. TECHNIQUE: Frontal view of the chest was obtained. FINDINGS: Low lung volumes with diffuse bronchovascular crowding. No focal airspace opacity, pleural effusion or pneumothorax. No acute osseous abnormalities. Nonobstructive bowel gas pattern in the included portions of the abdomen. XR/XR chest 1V IMPRESSION: 1. Low lung volumes with bronchovascular crowding. 2. No focal airspace opacity, pleural effusion or pneumothorax.
[2022-12-29 16:05] VITALS: BP 142/92; PULSE 100; RESP 18; TEMP 36.7; O2SAT 99; BMI 34.3
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
[2022-12-29] MEDS: LORazepam 1 MG TABLET 2 MG PO (17:13)
== END 2022-12-29 18:12 | disposition home or self-care (01) ==
PROVIDERS: Emergency Provider Emergency Medicine
DX: S20.02XA Contusion of left breast, initial encounter (principal); X58.XXXA Exposure to other specified factors, initial encounter; F84.0 Autistic disorder; Y93.9 Activity, unspecified; Y92.049 Unspecified place in boarding-house as the place of occurrence of the external cause; Y99.9 Unspecified external cause status
CPT/HCPCS: 71045; 99282; 99283

== ENCOUNTER 2023-12-13 17:06 | Emergency (ER) | payer MEDICARE, MEDICAID, SELFPAY ==
--- NOTE | 2023-12-13 17:12 | ED.GENADULT ---
HPI - General Adult General Chief complaint: General Medical Stated complaint: hypertension Time Seen by Provider: 12/13/23 18:54 Source: patient, RN notes reviewed and other (Staff at the patient's longterm) Mode of arrival: ambulatory Limitations: other (Patient is a poor historian due to intellectual disability) History of Present Illness ED Provider: Refugio HPI narrative: 38-year-old female with past medical history significant for cerebral palsy, intellectual disability presents for evaluation of ?fast heart rate. ? Patient was at the dentist for routine cleaning today. Apparently when they were checking her vital signs prior to any cleaning ?the monitor set her heart rate was as high as 250. ? The patient did not have any complaints She appeared comfortable and at her baseline per staff She does have a tremor worse in her right upper extremity Staff states that the vitals were only taken from the right upper extremity where the patient's tremor was Related Data Home Medications ?Medication ?Instructions ?Recorded ?Confirmed acetaminophen 650 mg 650 mg PO Q8H 10/11/21 tablet,extended release (Tylenol 8 Hour) aripiprazole 5 mg tablet 5 mg PO DAILY 10/11/21 bacitracin zinc 500 unit/gram 1 appl topical DAILY 10/11/21 topical ointment (Antibiotic (bacitracin zinc)) bisacodyl 5 mg tablet,delayed 10 mg PO BEDTIME 10/11/21 release (Dulcolax (bisacodyl)) cholecalciferol (vitamin D3) 25 800 unit PO DAILY 10/11/21 mcg (1,000 unit) capsule divalproex 500 mg tablet,delayed 500 mg PO BID 10/11/21 release gabapentin 300 mg capsule mg PO 10/11/21 loratadine 10 mg tablet (Claritin) 10 mg PO DAILY 10/11/21 lorazepam 0.5 mg tablet 0.5 mg PO DAILY PRN 10/11/21 lorazepam 1 mg tablet mg PO 10/11/21 lorazepam 2 mg tablet 2 mg PO BEDTIME PRN 10/11/21 norethindrone (contraceptive) 0.35 0.35 mg PO DAILY 10/11/21 mg tablet (Hillary) polyethylene glycol 3350 17 17 g PO DAILY 10/11/21 gram/dose oral powder (Miralax) trazodone 100 mg tablet 100 mg PO BEDTIME 10/11/21 triamcinolone acetonide 0.1 % topical BEDTIME 10/11/21 topical ointment Previous Rx's ?Medication ?Instructions ?Recorded diphenhydramine HCl 25 mg capsule 25 mg PO Q6H PRN allergic reaction 04/16/21 (Benadryl) #20 caps prednisone 20 mg tablet 60 mg (3 x 20 mg) PO DAILY 5 days 04/16/21 #15 tabs ondansetron 4 mg disintegrating 4 mg PO Q8H PRN nausea and 09/17/21 tablet vomiting #20 tabs Allergies Allergy/AdvReac Type Severity Reaction Status Date / Time No Known Allergies Allergy Verified 12/13/23 17:18 [No Known Allergies*] Review of Systems Constitutional: Constitutional: Denies body ache(s), Denies chills and Denies fever(s) Eyes: Eyes: Denies blurry vision Cardiovascular: Cardiovascular: Denies chest pain and Denies dyspnea Respiratory: Respiratory: Denies cough and Denies dyspnea Gastrointestinal: Gastrointestinal: Denies abdominal pain and Denies vomiting Musculoskeletal: Musculoskeletal: Denies back pain Integumentary/Breasts: Skin/Breast: Denies rash PMFSH Past Medical History Medical History Angioma Anxiety Autism Cerebral palsy Gallstones Intellectual disability Migraine Social History Social History Alcohol intake: never Patient Tobacco Use Status: Never used Tobacco Advance Directives: No Advance Directives Information Provided: No Do you have a plan to hurt others: No Plan Patient : No Physical Exam ED Vital Signs: Vital Signs - 24 hr 12/13/23 17:14 12/13/23 20:10 12/13/23 20:30 Temperature 98 F 98.5 F 98.5 F Pulse Rate 110 H 111 H 111 H Respiratory Rate 19 16 16 Blood Pressure 156/95 H 152/113 H 152/113 H Pulse Oximetry 98 94 95 Oxygen Delivery Method Room Air BMI result Body Mass Index 40.6 Const General: healthy appearing, comfortable, no acute distress, alert and awake Nutritional Appearance: well nourished [facility] Head: Yes normocephalic and Yes atraumatic Eyes Eyelids: Yes eyelids normal Conjunctivae: conjunctivae normal Sclerae: sclerae normal Corneas: corneas normal Pupils: Equal, round and reactive pupils present EOM: EOMs intact bilaterally Neck Neck: Yes full ROM Resp Effort & Inspection: normal respiratory effort, able to speak in complete sentences, no audible wheezes and not labored Auscultation: clear to auscultation bilaterally Cardio Rate: tachycardic Rhythm: regular rhythm GI Inspection: No distended Palpation (GI): Soft to palpation, not firm, nontender, no guarding and not rigid Skin General skin exam: no rashes or lesions noted and elasticity normal Neuro Cranial nerves: Yes Equal, round and reactive pupils present and Yes Bilaterally intact EOM present Extrem Other: Moving all extremities well without any obvious deformities Course Course Course Narrative: This is a rapid medical exam performed by Samy Loya NP: Additional HPI, ROS, PE not included below will be deferred to primary provider. Patient is a 38-year-old female with history of intellectual disability, cerebral palsy, autism, anxiety presenting to the ED from dentist with reported rapid heart rate. Patient very tremulous in triage. Staff reports no history of tachycardia but states patient gets very anxious at appointments. Documented HRs from dentist are 173, 250, 273, 153. HR 110 in triage. Plan: EKG Medical Decision Making Medical Decision Making MDM Narrative: 38-year-old female with past medical history as documented above presents for evaluation of asymptomatic ?fast heart rate. ? The patient's heart rate in the ER has not been above 118 which was documented on the EKG. Her heart rate has been right around 110 for the 3 hours she has been in the emergency department. She has no complaints or concerns. It is likely that staff at the dental office was abdominal checking the heart rate using the SBO monitor that was registering her tremors and falsely inflating the heart rate. The patient has no complaints or concerns, there has been no nausea or vomiting, she has not dizzy upon standing, she ambulates with a steady, even gait. The patient be discharged to follow-up with her PCP at this time Differential Diagnosis Differential Diagnoses: The differential diagnosis associated with the presentation includes Tachycardia POTS Anxiety Palpitations Arrhythmia Independent Interpretation I performed an independent interpretation of an: EKG (Sinus tachycardia with a rate of 118 beats minute. No ectopy or ischemic changes) Discharge Plan Discharge Clinical Impression: Tachycardia Patient Disposition: Home, Self-Care Instructions: Tachycardia (ED) Additional Instructions: Your EKG was normal sinus tachycardia Your heart rate in the ER was around 110 At the dentist, they may have been reading tremors incorrectly raising the recorded heart rate number Follow-up with your primary doctor, return for new or worsening symptoms Prescriptions: No Action prednisone 20 mg tablet 60 mg PO DAILY 5 Days Qty: 15 0RF diphenhydramine HCl [Benadryl] 25 mg capsule 25 mg PO Q6H PRN (Reason: allergic reaction) Qty: 20 0RF ondansetron 4 mg tablet,disintegrating 4 mg PO Q8H PRN (Reason: nausea and vomiting) Qty: 20 0RF norethindrone (contraceptive) [Hillary] 0.35 mg tablet 0.35 mg PO DAILY aripiprazole 5 mg tablet 5 mg PO DAILY gabapentin 300 mg capsule PO lorazepam 0.5 mg tablet 0.5 mg PO DAILY PRN trazodone 100 mg tablet 100 mg PO BEDTIME triamcinolone acetonide 0.1 % ointment topical BEDTIME divalproex 500 mg tablet,delayed release (DR/EC) 500 mg PO BID lorazepam 1 mg tablet PO lorazepam 2 mg tablet 2 mg PO BEDTIME PRN bisacodyl [Dulcolax (bisacodyl)] 5 mg tablet,delayed release (DR/EC) 10 mg PO BEDTIME polyethylene glycol 3350 [Miralax] 17 gram/dose powder 17 g PO DAILY bacitracin zinc [Antibiotic (bacitracin zinc)] 500 unit/gram ointment 1 appl topical DAILY loratadine [Claritin] 10 mg tablet 10 mg PO DAILY acetaminophen [Tylenol 8 Hour] 650 mg tablet extended release 650 mg PO Q8H cholecalciferol (vitamin D3) 25 mcg (1,000 unit) capsule 800 unit PO DAILY Interventions: ED Discharge Assessment Last Done: 12/13/23 20:30 Discharge Date/Time: 12/13/23 20:32 Print Language: Vietnamese
[2023-12-13 17:14] VITALS: BP 156/95; PULSE 110; RESP 19; TEMP 36.6; O2SAT 98; BMI 40.6
--- NOTE | 2023-12-13 17:15 | ECG_ITS ---
Test Reason : HYPERTENSION Blood Pressure : / mmHG Vent. Rate : 118 BPM Atrial Rate : 118 BPM P-R Int : 158 ms QRS Dur : 080 ms QT Int : 318 ms P-R-T Axes : 015 -20 -11 degrees QTc Int : 445 ms Sinus tachycardia Nonspecific T wave abnormality Abnormal ECG When compared with ECG of 30-MAY-2021 08:48, Criteria for Septal infarct are no longer Present Referred By: Gema Loya Electronically Signed By:SERGIO OLMOS MD
[2023-12-13 20:10] VITALS: BP 152/113; PULSE 111; RESP 16; TEMP 36.9; O2SAT 94
[2023-12-13 20:30] VITALS: BP 152/113; PULSE 111; RESP 16; TEMP 36.9; O2SAT 95
== END 2023-12-13 20:32 | disposition home or self-care (01) ==
PROVIDERS: Emergency Provider Emergency Medicine; PCP Internal Medicine
DX: R00.0 Tachycardia, unspecified (principal); G80.9 Cerebral palsy, unspecified; F79 Unspecified intellectual disabilities
CPT/HCPCS: 93005; 99283; 99284

== ENCOUNTER → 2023-12-13 17:15 | Outpatient (BNV) | payer MEDICARE, MEDICAID, SELFPAY | PROVIDERS: Emergency Provider Emergency Medicine; PCP Internal Medicine; Visit Provider Internal Medicine Cardiovascular Disease | DX: I10 Essential (primary) hypertension (principal); R00.0 Tachycardia, unspecified; R94.31 Abnormal electrocardiogram [ECG] [EKG] | CPT/HCPCS: 93010 ==